=== PATIENT | male | born 1955 | race Hispanic/Latino ===

== ENCOUNTER 2016-08-25 10:08 | Inpatient (IN) | payer BC ==
[~2016-08-25] VITALS: Ht 177.8 cm; Wt 101.6 kg
[2016-08-25 11:05] LABS: BASOPHIL COUNT 0.1 K/uL (0-0.1); EOSINOPHIL (%) 2.5 % (0-5); EOSINOPHIL COUNT 0.3 K/uL (0-0.3); HEMATOCRIT 46.2 % (38.0-50.0); IMMATURE GRANULOCYTE (%) 0.5 % (0.0-0.7); IMMATURE GRANULOCYTE COUNT 0.1 K/uL; INSTRUMENT ABS NEUTROPHIL CT 8.2 K/uL; LYMPHOCYTE COUNT 1.3 K/uL (1.0-2.8); MCH 28.9 PG (29.0-34.0); MCHC 34.4 G/DL (30.0-36.0); MCV 83.8 FL (86-99); MEAN PLAT.VOLUME 10.4 uM^3 (9.0-12.4); MONOCYTE COUNT 0.5 K/uL (0-0.8); NEUTROPHIL (%) 78.6 % (45-76); NEUTROPHIL COUNT 8.2 K/uL (1.8-6.4); PLATELET COUNT 189 K/uL (156-360); RBC DIS.WIDTH-CV 13.6 % (11.8-14.6); RBC DIS.WIDTH-SD 41.6 % (39-53); RED BLOOD COUNT 5.51 M/uL (4.00-5.50); WHITE BLOOD COUNT 10.4 K/uL (4.1-10.2)
[2016-08-25 11:19] LABS: CHLORIDE 111 mEq/L (99-109); SODIUM 141 mEq/L (136-147)
[2016-08-25 11:21] LABS: GLUCOSE 178 mg/dL (70-99)
[2016-08-25 11:22] LABS: ANION GAP 10 MEQ/L (2-14)
[2016-08-25 11:23] LABS: TOTAL BILIRUBIN 0.9 mg/dL (0.0-1.0)
[2016-08-25 11:24] LABS: ALKALINE PHOSPHATASE 81 IU/L (3-129)
[2016-08-25 11:25] LABS: GFR ESTIMATE (CALCULATED) 50 mL/min/
[2016-08-25 11:26] LABS: UREA NITROGEN (BUN) 18 mg/dL (9-23)
[2016-08-25 11:27] LABS: TROP-I INTERPRETATION NEGATIVE; TROPONIN-I 0.06 ng/mL (0.0-0.30)
[2016-08-25] MEDS ORDERED: ONE-A-DAY MEN'1 EACH PO (12:24)
[2016-08-25 13:03] LABS: MAGNESIUM 1.9 mg/dL (1.3-2.7)
[2016-08-25 13:46] VITALS: BP 163/103
[2016-08-25 15:20] VITALS: BP 159/95
[2016-08-25 18:40] LABS: TROP-I INTERPRETATION INDETERMINATE; TROPONIN-I 0.43 ng/mL (0.0-0.30)
[2016-08-25 20:14] VITALS: BP 159/78
[2016-08-25 21:24] LABS: INTER. NORMALIZED RATIO 1.1; PROTHROMBIN TIME 10.9 (9.2-11.2)
[2016-08-25 23:59] VITALS: BP 139/86
[2016-08-26 01:01] LABS: TROP-I INTERPRETATION INDETERMINATE; TROPONIN-I 0.41 ng/mL (0.0-0.30)
[2016-08-26 03:38] VITALS: BP 160/91
[2016-08-26 06:49] LABS: ANION GAP 9 MEQ/L (2-14); CHLORIDE 106 MEQ/L (99-109); GFR ESTIMATE (CALCULATED) 41 mL/min/; GLUCOSE 150 mg/dL (70-99); HDL CHOLESTEROL 30 MG/DL (Desirable>=40); LDL CHOLESTEROL 118 mg/dL (Desirable<100); NON-HDL CHOLESTEROL 152 mg/dL (Desirable<160); POTASSIUM 3.7 MEQ/L (3.7-5.4); SAMPLE HEMOLYSIS CHECK 0; SAMPLE ICTERIC CHECK 0; SAMPLE LIPEMIA CHECK 0; SODIUM 142 MEQ/L (136-147); TOTAL CHOLESTEROL 182 mg/dL (Desirable<200); TRIGLYCERIDES 168 MG/DL (Normal: <150); UREA NITROGEN (BUN) 23 mg/dL (9-23)
[2016-08-26 07:39] VITALS: BP 178/104
[2016-08-26 08:14] LABS: Estimated Average Glucose 174 mg/dL (70-123); HEMOGLOBIN A1c (GLYCOHEMOGLOB) 7.7 % HGB (Below 5.7)
[2016-08-26 15:05] VITALS: BP 137/82
[2016-08-26 20:15] VITALS: BP 160/90
[2016-08-26 23:56] VITALS: BP 138/81
[2016-08-27 03:39] VITALS: BP 143/83
[2016-08-27 06:15] LABS: ANION GAP 9 MEQ/L (2-14); CHLORIDE 107 MEQ/L (99-109); GFR ESTIMATE (CALCULATED) 41 mL/min/; GLUCOSE 147 mg/dL (70-99); POTASSIUM 3.8 MEQ/L (3.7-5.4); SAMPLE HEMOLYSIS CHECK 1; SAMPLE ICTERIC CHECK 0; SAMPLE LIPEMIA CHECK 0; SODIUM 141 MEQ/L (136-147); UREA NITROGEN (BUN) 26 mg/dL (9-23)
[2016-08-27 06:36] LABS: EOSINOPHIL (%) 4.8 % (0-5); EOSINOPHIL COUNT 0.3 K/uL (0-0.3); HEMATOCRIT 40.5 % (38.0-50.0); IMMATURE GRANULOCYTE (%) 0.6 % (0.0-0.7); INSTRUMENT ABS NEUTROPHIL CT 4.2 K/uL; LYMPHOCYTE COUNT 1.9 K/uL (1.0-2.8); MCH 29.6 PG (29.0-34.0); MCHC 34.1 G/DL (30.0-36.0); MCV 86.9 FL (86-99); MEAN PLAT.VOLUME 11.1 uM^3 (9.0-12.4); MONOCYTE (%) 8.5 % (3-12); MONOCYTE COUNT 0.6 K/uL (0-0.8); NEUTROPHIL (%) 59.3 % (45-76); NEUTROPHIL COUNT 4.2 K/uL (1.8-6.4); PLATELET COUNT 171 K/uL (156-360); RBC DIS.WIDTH-SD 43.5 % (39-53); RED BLOOD COUNT 4.66 M/uL (4.00-5.50); WHITE BLOOD COUNT 7.1 K/uL (4.1-10.2)
[2016-08-27 06:54] VITALS: BP 178/98
[2016-08-27 07:41] LABS: POINT-OF-CARE METER ID UU13113781
[2016-08-27 10:12] LABS: POINT-OF-CARE METER ID UU13113698
[2016-08-27] MEDS ORDERED: CLONIDINE HCL0.1 MG PO (10:41)
[2016-08-27] MEDS ORDERED: CLOPIDOGREL75 MG PO (10:41)
[2016-08-27] MEDS ORDERED: JANUVIA25 MG PO (10:42)
[2016-08-27] MEDS ORDERED: LISINOPRIL2.5 MG PO (10:42)
[2016-08-27] MEDS ORDERED: ASPIR-LOW81 MG PO (10:42)
[2016-08-27] MEDS ORDERED: CARVEDILOL25 MG PO (10:42)
[2016-08-27] MEDS ORDERED: ATORVASTATIN CA40 MG PO (10:43)
== END 2016-08-27 13:15 | disposition home or self-care (01) | DRG 248 ==
LOC: EME 10:08 → 4EAST 11:45 → EDOF 11:45 → 4EAST 13:15
PROVIDERS: Emergency Medicine; Hospitalist; Internal Medicine; Internal Medicine Cardiovascular Disease
DX: I25.10 Atherosclerotic heart disease of native coronary artery without angina pectoris (principal); I50.43 Acute on chronic combined systolic (congestive) and diastolic (congestive) heart failure; N17.9 Acute kidney failure, unspecified; E11.65 Type 2 diabetes mellitus with hyperglycemia; E11.22 Type 2 diabetes mellitus with diabetic chronic kidney disease; I16.0 Hypertensive urgency; J40 Bronchitis, not specified as acute or chronic; I25.5 Ischemic cardiomyopathy; I13.0 Hypertensive heart and chronic kidney disease with heart failure and stage 1 through stage 4 chronic kidney disease, or unspecified chronic kidney disease; E78.5 Hyperlipidemia, unspecified; N18.2 Chronic kidney disease, stage 2 (mild); I34.0 Nonrheumatic mitral (valve) insufficiency; N20.0 Calculus of kidney; K52.9 Noninfective gastroenteritis and colitis, unspecified; Z91.19 Patient's noncompliance with other medical treatment and regimen; Z79.82 Long term (current) use of aspirin; Z79.02 Long term (current) use of antithrombotics/antiplatelets; Z87.442 Personal history of urinary calculi; Z98.61 Coronary angioplasty status; Z82.49 Family history of ischemic heart disease and other diseases of the circulatory system
CPT/HCPCS: 71010; 80048; 80053; 80061; 82948; 83036; 83735; 83880; 84443; 84484; 85025; 85347; 85610; 93005; 93306; 99281; 99285; C1725; C1769; C1876; C1887; J1644; J1650; J1815; J1940; J2250; J3010